=== PATIENT | male | born 1955 | race Caucasian/White ===

== ENCOUNTER 2017-10-27 08:15 | Emergency (ER) | payer BC ==
--- NOTE | 2017-10-27 08:44 | UC ---
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 FEELS LIKE IT GETS STUCK IN HIS THROAT . UNABLE TO DRINK OR EAT FOOD SINCE YESTERDAY. PHLEGM COMES UP WHEN HE TRIES TO DRINK. EIGHT YEARS AGO HAD HIS ESOPHEGUS STRETCHED FOR SAME PROBLEM. " He took tums but they came back up. he continued to get pieces of roast beef come back up on him into the evening and can feel that the food is still there. has been unable to swallow anything. no fluids are staying down. - History of Current Complaint Chief Complaint: UCGI Stated Complaint: CHEST CONGESTION Time Seen by Provider: 10/27/17 08:24 - Allergy/Home Medications Allergies/Adverse Reactions: Allergies Allergy/AdvReac Type Severity Reaction Status Date / Time No Known Allergies Allergy Verified 10/27/17 08:21 PMH/Surg Hx/FS Hx/Imm Hx Previously Healthy: Yes - Surgical History Surgical History: Yes Surgery Procedure, Year, and Place: RIGHT SHOULDER - 2012 [place]. LEFT SHOULDER- 2010 [place]. ESOPHEGEAL STRICKTER STRETCHING - Family History Known Family History: Positive: Cardiac Disease - brother d/t [place] 2015 - Social History Alcohol Use: Occasionally Substance Use Type: None Smoking Status (MU): Former Smoker Type: Cigarettes Amount Used/How Often: 1 1/2 PPD Length of Time of Smoking/Using Tobacco: 38 Years Have You Smoked in the Last Year: No - Immunization History Most Recent Influenza Vaccination: Not the 2014/2015 Season Most Recent Tetanus Shot: 5 years ago Hx Tetanus, Diphtheria Vaccination: No - maybe 5 yrs prev Review of Systems Constitutional: Negative Skin: Negative Eyes: Negative ENT: Negative Respiratory: Negative Cardiovascular: Negative Gastrointestinal: Other - dysphagia Genitourinary: Negative Motor: Negative Neurovascular: Negative Musculoskeletal: Negative Neurological: Negative Psychological: Negative Is Patient Immunocompromised?: No All Other Systems Reviewed And Are Negative: Yes Physical Exam Triage Information Reviewed: Yes Appearance: Well-Appearing - but slightly uncomfortable, slightly anxious. Vital Signs: Initial Vital Signs Temp 97.5 F 10/27/17 08:21 Pulse 89 10/27/17 08:21 Resp 20 10/27/17 08:21 BP 188/98 10/27/17 08:21 Pulse Ox 99 10/27/17 08:21 Vital Signs Reviewed: Yes Eye Exam: Normal ENT Exam: Normal ENT: Positive: Pharynx normal Dental Exam: Normal Neck exam: Normal Neck: Positive: Supple, Nontender, No Lymphadenopathy Respiratory Exam: Normal Respiratory: Positive: Lungs clear, Normal breath sounds, No respiratory distress. Negative: Crackles, Rhonchi, Stridor, Wheezing Cardiovascular Exam: Normal Cardiovascular: Positive: RRR, No Murmur, Pulses Normal, Brisk Capillary Refill Abdominal Exam: Normal Abdomen Description: Positive: Nontender, Soft Bowel Sounds: Positive: Present Musculoskeletal Exam: Normal Neurological Exam: Normal Psychological Exam: Normal Skin Exam: Normal Course/Dx - Course Course Of Treatment: needs eval by GI today as he is unable to keep any solids or liquids down. Would like to go to the [place] [facility]. has had dilation in past. He feels he can drive himself and agrees to go directly to ER. - Differential Dx - Multi-Symptom Differential Diagnoses: Other - dysphagia, GERD Provider Diagnoses: dysphagia - Physician Notifications Discussed Patient Care With: Ignacia Pace NP @ 8:50 who accepts pt. Discharge - Discharge Plan Condition: Stable Disposition: HOME Patient Education Materials: Hypertension (ED), Dysphagia (ED) Referrals: Chadwick Velez MD [Primary Care Provider] - 2 Days Additional Instructions: We discussed the need for evaluation in the emergency room today. You will be driving yourself to [place] as this is where your GI doctor is based. Please go directly to the ER. -we discssed that your BP is high today. It may be due the symptoms you are having, but should haev follow up check with your PCP.
[2017-10-27 08:46] VITALS: BP 148/96
--- OUTSIDE RECORDS SUMMARY | 2017-10-27 08:57 | XMS REPORT | Clinical Summary ---
:1955 Author Organization [facility] Address [address] [place] [address] Phone Allergies, Adverse Reactions, Alerts Allergy Name Reaction Description Start Date Severity Status Provider No Known Allergies Pinky Christina [employer] Conditions or Problems Problem Name Problem Onset Status Entry Provider Comment Standard Annotate Code Date Date Description HEALTH V70.5 Active [facility] EXAMINATION 12/08 SAM examination of DEFINED JOYCE defined SUBPOPULATION PA subpopulations Medication List Medication Instructions Start Stop Generic NDC Status Provider Patient Date Date Name Instruction No Drug Pinky Christina Therapy 13 [employer] Prescribed - none known did ask Vital Signs Date Name Value Unit Range Description blood pressure, diastolic 77 mm[Hg] BP thomas blood pressure, systolic 136 mm[Hg] BP sys height E&M 68.5 [in_us] Bdy height pulse rate E&M 86 /min Heart rate respiratory rate E&M 18 /min Resp rate temperature E&M 98.9 [degF] Body temperature weight E&M 194 [lb_av] Weight Measured Diagnostic Results Date Name Value Unit Range Description Occupational Health: [place]: [employer] - Urinalysis urine color yellow appearance, urine clear leukocyte esterase, urine, by dipstick negative nitrite, urine, semiquantitative negative urobilinogen, urine, semiquantitative (dipstick) negative blood in urine (hemoglobin) by dipstick negative ketones, urine, by test strip negative bilirubin, urine negative glucose, urine, semiquantitative negative pH, urine, semiquantitative 6.0 specific gravity, urine 1.030 Procedures Code Procedure Name Date Entry Date Standard Description CPT-OHVIS Vision - [place] 15:10:38 EST CPT-OHCOLOR Color Vision - [place] 15:10:38 EST CPT-OHAUDIO Audiometry - [place] 15:10:38 EST CPT-OHUA Urine Dip - [place] 15:10:38 EST CPT-OHPEDOT DOT PE 15:10:38 EST CPT-OHVIS Vision - [place] 14:40:57 EST CPT-OHCOLOR Color Vision - [place] 14:40:57 EST CPT-OHAUDIO Audiometry - [place] 14:40:56 EST CPT-OHUA Urine Dip - [place] 14:40:56 EST CPT-OHPEDOT DOT PE 14:40:56 EST
--- OUTSIDE RECORDS SUMMARY | 2017-10-27 08:57 | XMS REPORT | Clinical Summary ---
:1955 Author Organization [facility] Address [address] [place] [address] Phone Allergies, Adverse Reactions, Alerts Allergy Name Reaction Description Start Date Severity Status Provider No Known Allergies Pinky Christina [employer] Conditions or Problems Problem Name Problem Onset Status Entry Provider Comment Standard Annotate Code Date Date Description HEALTH V70.5 Active [facility] EXAMINATION 12/08 SAM examination of DEFINED JOYCE defined SUBPOPULATION PA subpopulations Medication List Medication Instructions Start Stop Generic NDC Status Provider Patient Date Date Name Instruction No Drug Pinky Christina Therapy 13 [employer] Prescribed - none known did ask Vital [...]
== END 2017-10-27 08:53 | disposition home or self-care (01) ==
LOC: UCCORT 08:15
DX: R13.10 Dysphagia, unspecified (principal); Z87.891 Personal history of nicotine dependence
CPT/HCPCS: 99212; G0463